=== PATIENT | male | born 1985 | race Caucasian/White ===

== ENCOUNTER 2018-08-23 01:34 | Emergency (ER) | payer BC, OTHER ==
[~2018-08-23] VITALS: Ht 182.9 cm; Wt 131.0 kg
[2018-08-23 01:39] VITALS: Ht 182.9 cm; Wt 131.0 kg
--- NOTE | 2018-08-23 02:17 | ERD ---
ER Documentation Chief Complaint Chief Complaint left eye blurry vision upon waking up x 1 hour HPI 33-year-old male with no reported past medical history, obesity who presents with complaint of episode of left eye blurry vision after waking up approximately 1 hour ago. Since that time vision to left eye is steadily been improving. He denies recent injury or trauma to affected eye, does not wear contact lenses, foreign body feeling to the affected eye, pain with eye movement. He otherwise denies recent illness, associated headache, dizziness, fevers, slurred speech, upper extremity with weakness or any other concerning symptoms. Reports relatively good health but states he has not seen a doctor in some time. He otherwise without complaint. ROS All systems reviewed and are negative except as per history of present illness. Allergies Allergies: Coded Allergies: No Known Drug Allergies (Verified Allergy, Unknown, 08/23/18) PMhx/Soc Medical and Surgical Hx: pt denies Medical Hx, pt denies Surgical Hx Hx Alcohol Use: Yes Hx Substance Use: No Hx Tobacco Use: No Smoking Status: Never smoker FmHx Family History: No diabetes, No coronary disease, No other Physical Exam Vitals Vital Signs Date Temp Pulse Resp B/P (MAP) Pulse Ox O2 O2 Flow FiO2 Time Delivery Rate 08/23/18 99.7 100 18 152/92 98 01:39 (112) Physical Exam I have reviewed the triage vital signs. Const: Well nourished, well developed, appears stated age Eyes: PERRL, no conjunctival injection HENT: NCAT, Neck supple without meningismus, left eye no erythema, PERRL, retinal exam unremarkable, no pain with eye movement CV: RRR, Warm, well-perfused extremities RESP: CTAB, Unlabored respiratory effort GI: soft, non-tender, non-distended, no masses MSK: No gross deformities appreciated Skin: Warm, dry. No rashes Neuro: grossly non focal Psych: Appropriate mood and affect. Procedures/MDM 33-year-old male who presents with with transient left eye blurriness. Reports vision to left eye is improving since onset of symptoms. I have low suspicion for intraocular or neurological process warranting further emergent care work- up. Patient does not exhibit any red flag symptoms and has a reassuring examin ation. We will discharge with strict return precautions. Advised patient to establish care with his PMD. Return to ED if symptoms return. DISPOSITION PLAN: We discussed follow up with the patient's primary care doctor within 24 to 48 hours. Patient counseled regarding my diagnostic impression and care plan. Prior to discharge all questions answered. Pt agrees with treatment plan and understands strict return precautions. Precautionary instructions provided including instructions to return to the ER if not improving or for any worsening or changing symptoms or concerns. Disclaimer: Inadvertent spelling and grammatical errors are likely due to EHR/dictation software use and do not reflect on the overall quality of patient care. Also, please note that the electronic time recorded on this note does not necessarily reflect the actual time of the patient encounter. Departure Diagnosis: Primary Impression: Blurring of visual image Condition: Stable Patient Instructions: Blurred Vision Referrals: [facility] YOU HAVE RECEIVED A MEDICAL SCREENING EXAM AND THE RESULTS INDICATE THAT YOU DO NOT HAVE A CONDITION THAT REQUIRES URGENT TREATMENT IN THE EMERGENCY DEPARTMENT. FURTHER EVALUATION AND TREATMENT OF YOUR CONDITION CAN WAIT UNTIL YOU ARE SEEN IN YOUR DOCTORS OFFICE WITHIN THE NEXT 1-2 DAYS. IT IS YOUR RESPONSIBILITY TO MAKE AN APPOINTMENT FOR FOLOW-UP CARE. IF YOU HAVE A PRIMARY DOCTOR --you should call your primary doctor and schedule an appointment IF YOU DO NOT HAVE A PRIMARY DOCTOR YOU CAN CALL OUR PHYSICIAN REFERRAL HOTLINE AT IF YOU CAN NOT AFFORD TO SEE A PHYSICIAN YOU CAN CHOSE FROM THE FOLLOWING [facility] [address] [facility]. [facility] [address] [facility]. [facility] [address] [facility] [facility] [address] [facility] [facility] [address] [facility]. [facility]. [address] [facility] [address] . [facility] [place] Hours: Mon - Fri 9:00 AM - 5:00 PM Additional Instructions: Call your primary care doctor TOMORROW for an appointment during the next 2-3 days.See the doctor sooner or return here if your condition worsens before your appointment time. RAINA ONEILL PA-C Aug 23, 2018 02:17
== END 2018-08-23 03:05 | disposition home or self-care (01) ==
LOC: FTE 01:34
DX: H53.8 Other visual disturbances (principal); E66.9 Obesity, unspecified; Z68.32 Body mass index [BMI] 32.0-32.9, adult
CPT/HCPCS: 99282